=== PATIENT | male | born 1960 | race African-American/Black ===

== ENCOUNTER 2017-07-26 20:13 | Inpatient (IN) | payer BC ==
[2017-07-26] MEDS: IV NORMAL SALINE 1000ML BAG 1,000 ML IV ×2 (20:20→20:40)
[2017-07-26] MEDS: MIDAZOLAM HCL/PF 5 MG/5 ML VIAL. NS ×2 (20:20→22:09)
[2017-07-26] MEDS: PROPOFOL 10 MG/ML (20ML) VIAL. IV ×3 (20:21→22:30)
[2017-07-26 20:29] LABS: ADD MAN DIFF? NO
[2017-07-26 20:32] LABS: BASO # 0.1 x10^3/uL (0.0-0.2); BASO % 1 % (0-3); EOS # 0.1 x10^3/uL (0.0-0.7); EOS % 1 % (0-3); HEMOGLOBIN 14.5 g/dL (13.0-17.5); LYMPH % 47 % (24-48); MEAN CORPUSCULAR HEMOGLOBIN 34 pg (25-35); MEAN CORPUSCULAR HGB CONC 35 g/dL (31-37); MEAN CORPUSCULAR VOLUME 99 fL (79-100); MONO # 0.7 x10^3/uL (0.0-1.1); MONO % 9 % (0-9); NEUT # 3.6 x10^3uL (1.8-7.7); NEUT % 43 % (31-73); PLATELET COUNT 241 x10^3/uL (140-400); RED BLOOD COUNT 4.25 x10^6/uL (4.30-5.70); RED CELL DISTRIBUTION WIDTH 15.8 % (11.5-14.5); WHITE BLOOD COUNT 8.4 x10^3/uL (4.0-11.0)
[2017-07-26] MEDS: MIDAZOLAM 100MG/100ML PREMIX 100 ML IV (20:35)
[2017-07-26 20:36] LABS: BASE EXCESS ABG -8 mmol/L (-3-3); HCO3 ABG 20 mmol/L (21-28); PCO2 ABG 46 mmHg (35-46); PH ABG 7.25 (7.35-7.45); PO2 ABG 241 mmHg (75-108); SAT O2 ABG 99 % (92-99)
[2017-07-26 20:42] LABS: ANION GAP 19 (6-14); BLOOD UREA NITROGEN 10 mg/dL (8-26); BUN/CREATININE RATIO 10 (6-20); CALCIUM 8.6 mg/dL (8.5-10.1); CARBON DIOXIDE 20 mmol/L (21-32); CHLORIDE 104 mmol/L (98-107); GLUCOSE 141 mg/dL (70-99); POTASSIUM 3.5 mmol/L (3.5-5.1); SODIUM 143 mmol/L (136-145)
[2017-07-26 20:48] LABS: ALBUMIN 3.7 g/dL (3.4-5.0); ALBUMIN/GLOBULIN RATIO 0.9 (1.0-1.7); ALK PHOS 96 U/L (46-116); ALT (SGPT) 24 U/L (16-63); AST (SGOT) 53 U/L (15-37); TOTAL BILIRUBIN 0.5 mg/dL (0.2-1.0)
[2017-07-26] MEDS: MIDAZOLAM HCL/PF 5 MG/5 ML VIAL. IV ×2 (20:50)
[2017-07-26 20:51] LABS: TROPONINI < 0.017 ng/mL (0.000-0.055)
[2017-07-26 20:53] LABS: NT-PRO BNP 66 pg/mL (0-124)
[2017-07-26 20:59] LABS: ETHANOL 322 mg/dL (0-10)
[2017-07-26 21:02] LABS: AMPHETAMINE/METHAMPHETAMINE NEG (NEG); BARBITURATES NEG (NEG); BENZODIAZEPINES NEG (NEG); CANNABINOIDS NEG (NEG); COCAINE NEG (NEG); ETHANOL, URINE POS (NEG); METHADONE NEG (NEG); OPIATES NEG (NEG); PHENCYCLIDINE NEG (NEG)
[2017-07-26 21:07] LABS: LACTIC ACID 6.4 mmol/L (0.4-2.0)
[2017-07-26 21:31] LABS: CREATINE KINASE 383 U/L (39-308)
[2017-07-26] MEDS ORDERED: PIP/TAZO PER PHARMACY MC ×2 (22:00)
[2017-07-26] MEDS ORDERED: ONDANSETRON PF 4 MG/2 ML VIAL. IV (22:00)
[2017-07-26] MEDS: PIPERACILLIN/TAZOBACTAM 4.5 GM in IV NORMAL SALINE 100ML 100 ML IV (22:10)
[2017-07-26] MEDS: IV DEXTROSE 5% - 0.9 % NACL 1,000 ML IV (22:12)
[2017-07-26] MEDS: IPRATRPIUM/ALBUTEROL 0.5/2.5MG 3 ML NEBU. NEB (23:28)
[2017-07-27] MEDS: IV NORMAL SALINE 1000ML BAG 1,000 ML IV ×3 (00:14→23:19)
[2017-07-27] MEDS ORDERED: ACETAMINOPHEN 650 MG/20.3 ML SOLUTION. PEG (01:00)
[2017-07-27] MEDS ORDERED: ONDANSETRON PF 4 MG/2 ML VIAL. IV (01:00)
[2017-07-27 01:12] LABS: LACTIC ACID 2.6 mmol/L (0.4-2.0)
[2017-07-27 01:18] LABS: TROPONINI < 0.017 ng/mL (0.000-0.055)
[2017-07-27] MEDS: MIDAZOLAM 100MG/100ML PREMIX 100 ML IV (02:57)
[2017-07-27] MEDS: PIPERACILLIN/TAZOBACTAM 3.375 GM in IV NORMAL SALINE 50ML 50 ML IV ×4 (05:51→23:45)
[2017-07-27 06:04] LABS: ADD MAN DIFF? NO
[2017-07-27 06:10] LABS: BASO % 1 % (0-3); EOS % 0 % (0-3); HEMOGLOBIN 13.1 g/dL (13.0-17.5); LYMPH # 0.8 x10^3/uL (1.0-4.8); LYMPH % 10 % (24-48); MEAN CORPUSCULAR HEMOGLOBIN 33 pg (25-35); MEAN CORPUSCULAR HGB CONC 34 g/dL (31-37); MEAN CORPUSCULAR VOLUME 99 fL (79-100); MONO # 0.6 x10^3/uL (0.0-1.1); MONO % 8 % (0-9); NEUT # 6.9 x10^3uL (1.8-7.7); NEUT % 82 % (31-73); PLATELET COUNT 198 x10^3/uL (140-400); RED BLOOD COUNT 3.95 x10^6/uL (4.30-5.70); RED CELL DISTRIBUTION WIDTH 15.9 % (11.5-14.5); WHITE BLOOD COUNT 8.4 x10^3/uL (4.0-11.0)
[2017-07-27 06:30] LABS: ALBUMIN 2.9 g/dL (3.4-5.0); ALBUMIN/GLOBULIN RATIO 0.8 (1.0-1.7); ALK PHOS 73 U/L (46-116); ALT (SGPT) 22 U/L (16-63); ANION GAP 12 (6-14); AST (SGOT) 42 U/L (15-37); BLOOD UREA NITROGEN 8 mg/dL (8-26); BUN/CREATININE RATIO 8 (6-20); CALCIUM 7.6 mg/dL (8.5-10.1); CARBON DIOXIDE 22 mmol/L (21-32); CHLORIDE 110 mmol/L (98-107); GFR 93.2; GLUCOSE 121 mg/dL (70-99); POTASSIUM 3.9 mmol/L (3.5-5.1); SODIUM 144 mmol/L (136-145); TOTAL BILIRUBIN 0.7 mg/dL (0.2-1.0); TOTAL PROTEIN 6.7 g/dL (6.4-8.2)
[2017-07-27] MEDS: IPRATRPIUM/ALBUTEROL 0.5/2.5MG 3 ML NEBU. NEB ×4 (07:48→20:29)
[2017-07-27 08:10] LABS: BASE EXCESS ABG -7 mmol/L (-3-3); HCO3 ABG 17 mmol/L (21-28); PCO2 ABG 28 mmHg (35-46); PO2 ABG 90 mmHg (75-108); SAT O2 ABG 96 % (92-99)
[2017-07-27 08:11] LABS: FIO2 ABG 40
[2017-07-27 11:19] LABS: BASE EXCESS ABG -3 mmol/L (-3-3); HCO3 ABG 22 mmol/L (21-28); PCO2 ABG 41 mmHg (35-46); PH ABG 7.35 (7.35-7.45); PO2 ABG 99 mmHg (75-108); SAT O2 ABG 97 % (92-99)
[2017-07-27 11:21] LABS: FIO2 ABG 40
[2017-07-27] MEDS ORDERED: HALOPERIDOL LACTATE 5 MG/ML VIAL. IVP (11:45)
[2017-07-27] MEDS: HALOPERIDOL LACTATE 5 MG/ML VIAL. IVP ×2 (14:00→22:10)
[2017-07-27] MEDS: MULTIVIT INFUSN,ADULT 4,VIT K 10 ML, THIAMINE 100 MG, FOLIC ACID 1 MG in IV DEXTROSE 5 ... IV (14:27)
[2017-07-27] MEDS: CLINDAMYCIN 600MG PREMIX 50 ML IV ×2 (14:27→17:28)
[2017-07-27 18:11] LABS: MRSA BY PCR Negative (Negative)
[2017-07-27] MEDS ORDERED: diphenhydrAMINE 50 MG/ML VIAL IVP (20:15)
[2017-07-28] MEDS: CLINDAMYCIN 600MG PREMIX 50 ML IV ×3 (02:12→17:16)
[2017-07-28 05:29] LABS: ADD MAN DIFF? NO
[2017-07-28 05:57] LABS: ALBUMIN 2.6 g/dL (3.4-5.0); ALBUMIN/GLOBULIN RATIO 0.7 (1.0-1.7); ALK PHOS 75 U/L (46-116); ALT (SGPT) 18 U/L (16-63); ANION GAP 9 (6-14); AST (SGOT) 24 U/L (15-37); BLOOD UREA NITROGEN 5 mg/dL (8-26); BUN/CREATININE RATIO 6 (6-20); CARBON DIOXIDE 25 mmol/L (21-32); CHLORIDE 107 mmol/L (98-107); CREATININE 0.9 mg/dL (0.7-1.3); GFR 105.2; GLUCOSE 96 mg/dL (70-99); MAGNESIUM 1.9 mg/dL (1.8-2.4); POTASSIUM 3.5 mmol/L (3.5-5.1); SODIUM 141 mmol/L (136-145); TOTAL BILIRUBIN 1.2 mg/dL (0.2-1.0); TOTAL PROTEIN 6.6 g/dL (6.4-8.2)
[2017-07-28] MEDS: HALOPERIDOL LACTATE 5 MG/ML VIAL. IVP ×3 (06:00→22:28)
[2017-07-28] MEDS: PIPERACILLIN/TAZOBACTAM 3.375 GM in IV NORMAL SALINE 50ML 50 ML IV ×2 (06:10→12:00)
[2017-07-28 06:29] LABS: BASO % 0 % (0-3); EOS # 0.1 x10^3/uL (0.0-0.7); EOS % 1 % (0-3); HEMATOCRIT 38.9 % (39.0-53.0); HEMOGLOBIN 13.3 g/dL (13.0-17.5); LYMPH # 1.4 x10^3/uL (1.0-4.8); LYMPH % 16 % (24-48); MEAN CORPUSCULAR HEMOGLOBIN 34 pg (25-35); MEAN CORPUSCULAR HGB CONC 34 g/dL (31-37); MEAN CORPUSCULAR VOLUME 98 fL (79-100); MONO # 0.5 x10^3/uL (0.0-1.1); MONO % 5 % (0-9); NEUT # 6.7 x10^3uL (1.8-7.7); NEUT % 78 % (31-73); PLATELET COUNT 180 x10^3/uL (140-400); RED BLOOD COUNT 3.96 x10^6/uL (4.30-5.70); RED CELL DISTRIBUTION WIDTH 15.9 % (11.5-14.5); WHITE BLOOD COUNT 8.6 x10^3/uL (4.0-11.0)
[2017-07-28] MEDS: IV NORMAL SALINE 1000ML BAG 1,000 ML IV ×3 (07:43→23:03)
[2017-07-28] MEDS: IPRATRPIUM/ALBUTEROL 0.5/2.5MG 3 ML NEBU. NEB ×4 (08:15→19:35)
[2017-07-28] MEDS: ENOXAPARIN 40 MG/0.4 ML SYRINGE. SQ (10:55)
[2017-07-28] MEDS: PIPERACILLIN/TAZOBACTAM 3.375 GM in IV NORMAL SALINE 100ML 100 ML IV (13:52)
[2017-07-28] MEDS: LACTOBACILLUS RHAMNOSUS GG 1 CAPSULE. PO (20:55)
[2017-07-29] MEDS: PIPERACILLIN/TAZOBACTAM 3.375 GM in IV NORMAL SALINE 100ML 100 ML IV ×2 (00:10→06:05)
[2017-07-29] MEDS: CLINDAMYCIN 600MG PREMIX 50 ML IV (02:06)
[2017-07-29] MEDS: HALOPERIDOL LACTATE 5 MG/ML VIAL. IVP (06:05)
[2017-07-29 06:06] LABS: ADD MAN DIFF? NO
[2017-07-29 06:33] LABS: BASO % 0 % (0-3); EOS # 0.1 x10^3/uL (0.0-0.7); EOS % 2 % (0-3); HEMATOCRIT 40.2 % (39.0-53.0); HEMOGLOBIN 13.7 g/dL (13.0-17.5); LYMPH # 1.5 x10^3/uL (1.0-4.8); LYMPH % 22 % (24-48); MEAN CORPUSCULAR HEMOGLOBIN 33 pg (25-35); MEAN CORPUSCULAR HGB CONC 34 g/dL (31-37); MEAN CORPUSCULAR VOLUME 98 fL (79-100); MONO # 0.4 x10^3/uL (0.0-1.1); MONO % 6 % (0-9); NEUT # 4.8 x10^3uL (1.8-7.7); NEUT % 70 % (31-73); PLATELET COUNT 194 x10^3/uL (140-400); RED BLOOD COUNT 4.09 x10^6/uL (4.30-5.70); RED CELL DISTRIBUTION WIDTH 15.7 % (11.5-14.5); WHITE BLOOD COUNT 6.8 x10^3/uL (4.0-11.0)
[2017-07-29 06:34] LABS: INR 1.1 (0.8-1.1); PROTHROMBIN TIME PATIENT 13.5 SEC (11.7-14.0)
[2017-07-29 06:56] LABS: ALBUMIN 2.7 g/dL (3.4-5.0); ALBUMIN/GLOBULIN RATIO 0.6 (1.0-1.7); ALK PHOS 78 U/L (46-116); ALT (SGPT) 16 U/L (16-63); ANION GAP 13 (6-14); AST (SGOT) 19 U/L (15-37); BLOOD UREA NITROGEN 6 mg/dL (8-26); BUN/CREATININE RATIO 6 (6-20); CALCIUM 8.6 mg/dL (8.5-10.1); CARBON DIOXIDE 23 mmol/L (21-32); CHLORIDE 105 mmol/L (98-107); GFR 93.2; GLUCOSE 96 mg/dL (70-99); POTASSIUM 3.2 mmol/L (3.5-5.1); SODIUM 141 mmol/L (136-145); TOTAL BILIRUBIN 1.3 mg/dL (0.2-1.0); TOTAL PROTEIN 7.1 g/dL (6.4-8.2)
[2017-07-29] MEDS: IPRATRPIUM/ALBUTEROL 0.5/2.5MG 3 ML NEBU. NEB (08:01)
[2017-07-29] MEDS ORDERED: INFLUENZA VAX SCREEN BY RX. MC (10:45)
[2017-07-29] MEDS: FLU VACC QS2017-18 (36MOS+)/PF 0.5 ML SYRINGE. VAX IM (11:12)
== END 2017-07-29 12:52 | disposition home or self-care (01) | DRG 208 ==
LOC: ER 20:13 → 1 WEST ICU 22:00
PROC: 5A1935Z Respiratory Ventilation, Less than 24 Consecutive Hours (ICD-10-PCS; principal; 2017-07-26)
DX: J69.0 Pneumonitis due to inhalation of food and vomit (principal); J96.01 Acute respiratory failure with hypoxia; G93.41 Metabolic encephalopathy; E87.2 Acidosis; F10.129 Alcohol abuse with intoxication, unspecified; R40.2430 Glasgow coma scale score 3-8, unspecified time; Y90.8 Blood alcohol level of 240 mg/100 ml or more
CPT/HCPCS: 31500; 36415; 36600; 43752; 51702; 70450; 71045; 72125; 80053; 80307; 82550; 82805; 83605; 83735; 83880; 84484; 85025; 85610; 87641; 90686; 92610-GN; 93005; 94002; 94003; 94640; 96361; 96365; 99285-25; G0480; J1630; J1650; J2060; J2250; J2543; J2704; J3490; J7030; J7042; J7620

== ENCOUNTER 2017-08-04 20:22 | Emergency (ER) | payer BC | END 2017-08-04 21:44 | disposition left against medical advice (07) | LOC: ER 21:44 | DX: R06.02 Shortness of breath (principal); F10.20 Alcohol dependence, uncomplicated | CPT/HCPCS: 99284 ==